=== PATIENT | female | born 2000 | race Two or more races ===

== ENCOUNTER 2025-06-29 11:04 | Outpatient (AMB) | payer OTHER, SELFPAY ==
--- NOTE | 2025-06-29 11:08 | A.OFFVIS_ITS ---
Intake Visit Reasons: 6m migraine HPI Comments Details: 25 years old right-handed woman with autism spectrum disorder, learning disability, and migriane. (She was initially seen in Aug when was here for an abnormal MRI of brain. This was done due to her psychological/cognitive issues. She was a product of normal , the first child of her mother, born a few weeks premature due to amniotic leak, with no overt issues at . She was noted to be a happy smiling child, seldom crying, and with problem speaking. Speech therapy started in young age. Physical milestones were ok. She barely could speak a little in first grade. Over the years, she struggled with acadamics and had to have repitition of everything. Even with that, and repeating dozens of times, she could not memorize. It was same with shcool subjects or activities like cooking. She had one or two consistent friends and enjoyed physical sports with them. She went through high school and then attended [employer] for [employer] program. Now she was struggling to pass the [facility] [employer] exam, which she has already taken twice. She used to pull her hair and chew her tongue. She was getting anxious about social situation and avoiding going into stores. Over the years, she was found to be a happy kid but not much interactive. She does not yell, even if her mom pushes her to do it. She is not bad with directions, can do dishes and vaccum, drives and has a license. She also suffered from headaches, about two times a week, each time lasting all day. Pain was all around the head, like a pressure. She was also freezing in the middle of conversation like a huge pause. IT was like her mind was not working.) She is presenting with migraine management needs. She reports experiencing migraines weekly, often lasting most of the day, with varying response to current medication. The headaches occur regularly, starting about a week ago with worsening severity. She frequently needs support to remember medications. Her record indicates autism spectrum disorder affecting her social and communication skills. She demonstrates significant avoidance of social interactions and difficulties with initiation. Additionally, she experiences consistent sleep disturbances characterized by challenges in both falling and staying asleep. She also experiences situational anxiety, especially in social contexts or unfamiliar environments. A learning disability further complicates her daily functionality, as noted in her struggles with time management and communication planning. Attempts have been made to provide support through therapy and a structured environment. Review of Systems Narrative - Neurologic: Reports migraines once a week - Psychiatric: Reports situational anxiety; Denies current symptoms of depression; Reports ongoing therapy - Sleep: Reports difficulty initiating and maintaining sleep - General: Reports autism spectrum disorder with noted difficulties in communication Physical Exam Neuro Other: Mental Status: Alert and oriented to person, place, and time. Normal attention. Normal spontaneous speech, fluency, and comprehension. Cranial Nerves: CN II: Visual taylor full to confrontation, visual acuity intact. CN III, IV, : Pupils equal, round, reactive to light and accommodation. Extraocular movements are normal. CN V: Facial sensation is normal. CN VII: Facial movements symmetrical. CN VIII: Hearing intact to bedside conversation is normal. CN IX, X: Palate elevates symmetrically. CN XI: Shoulder shrug and head turn symmetrical. CN XII: Tongue midline without atrophy or fasciculations. Coordination: Dachlf-pk-cofe and bwvl-jy-[id number] testing normal. No dysmetria. Gait and Station: No obvious gait abnormality. No ataxia or instability. Extrapyramidal: Full facial expressions and blinking. No rigidity. Movements are appropriate with no tremor or abnormality. Speech: Normal; no dysarthria or tremor. Assessment & Plan Assessment & Plan (1) Migraine without aura: Comment: MRI brain WO at [facility] in Jun 2024: One punctate WM left frontal lesion, non significant, otherwise ok Routine EEG at off in Aug 2024: WNL. Code(s): G43.009 - Migraine without aura, not intractable, without status migrainosus Category: Medical Qualifiers: Status migrainosus presence: without status migrainosus Intractability: not intractable Qualified Code(s): G43.009 - Migraine without aura, not intractable, without status migrainosus (2) Autism spectrum disorder: Code(s): F84.0 - Autistic disorder Category: Medical (3) Learning disabilities: Code(s): F81.9 - Developmental disorder of scholastic skills, unspecified Category: Social Hx Plan Impression: a: Migraine without aura b: Autism spectrum disorder c: Learning disabilities that impacts her ability to work in a profession and to remember to take meds on regular basis Rec: a: Reassurance b: Propranalol 10mg bid for migraine control and anxiety c: Sumatriptan 50mg one a day as needed. Medications: New propranolol 10 mg PO BID 120 tabs 0RF sumatriptan succinate 50 mg orally qd prn for headache PRN; do not exceed 4 doses per 24 hrs 10 tabs 5RF migraine headache Coding Level of Care Code Est Pt Level 5 (15436) Global (21769) Diagnoses Migraine without aura and without status migrainosus, not intractable G43.009 Status migrainosus presence: without status migrainosus Intractability: not intractable Autism spectrum disorder F84.0 Learning disabilities F81.9 Time Spent (min) 60 Comment A lot of time was spent discussing her medical and social issues and providing counseling.
--- OUTSIDE RECORDS SUMMARY | 2025-06-29 13:14 | XMS_ITS | Clinical Summary ---
Author Organization [facility] ity Address [address] [place] [address] Care Team Providers Care Material Coordinator Name Role Phone Unavailable Primary Care Provider Unavailabl e Social History Tobacco Use Types Packs/Day Years Used Date Smoking Tobacco: Never Assessed Comments Unknown Sex and Gender Information Value Date Recorded Sex Assigned at Not on file Legal Sex Female 7:15 AM EST Gender Identity Not on file Sexual Orientation Not on file Plan of Treatment Health Maintenance Due Date Last Done Comments HPV Vaccines (1 - 3-dose series) 02/08/2015 DTaP,Tdap,and Td Vaccines (1 - Tdap) 02/08/2019 Hepatitis B Vaccines (1 of 3 - 19+ 3-dose series) 02/08/2019 Cervical Cancer Screening: P ap Smear 02/08/2021 Depression Screening 08/19/2024 COVID-19 Vaccine ( - 2023-2 5 season) 2025 Influenza Vaccine (#1) 2025 RSV Immunization Adult Patie nts (1 - 1-dose 75+ series) 02/08/2075 HIB Vaccines Aged Out No longer eligi ble based on patient's age to complete this topic Hepatitis A Vaccines Aged Out No long er eligible based on patient's age to complete this topic IPV Vaccines Aged Out No longer eligi ble based on patient's age to complete this topic MMR Vaccines Aged Out No longer eligi ble based on patient's age to complete this topic Meningococcal ACWY Vaccine Aged Out N o longer eligible based on patient's age to complete this topic Meningococcal B Vaccine Aged Out No l onger eligible based on patient's age to complete this topic Pneumococcal Vaccine: Pediat rics (0 to 5 Years) and At-Risk Patients (6 to 49 Years) Aged Out No longer eligible b ased on patient's age to complete this topic RSV Immunization Patients Un demetrius 20 months Aged Out No longer eligible b ased on patient's age to complete this topic Varicella Vaccines Aged Out No longer eligible based on patient's age to complete this topic
--- OUTSIDE RECORDS SUMMARY | 2025-06-29 13:15 | XMS_ITS | Data Portability ---
Author Organization [place] - [facility], [facility] Address [address] [place] [address] Assessment Encounter Date Assessment Date Assessment LastModified by Organization Details LastModified Time 05/25/2019 05/25/2019 Dmitri presented with persistent cough for almost 1 month, possibly with some improvement, but mom is addiment that she never improved and is only getting worse. Lungs clear on exam, but may have atypical pneumonia, so will treat with azithromycin. Mom aware that this will not help if she has had back to back viral URIs. Discussed supportive care for cough: vicks vapor rub to chest for nighttime cough, honey or tea with lemon and honey, tylenol/motrin as needed for fever or discomfort. [email or web address] Not available 05/25/2019 17:20:21 03/22/2021 03/22/2021 Dmitri is a 21 year old female presenting for routine WCC. No high risk issues Developmental academic issues- IEP was in place, following with disability services and [facility]. Encouraged mom to reach out to [facility] for further information and options for testing. At this point is not eligible to be seen with Developmental Pediatrics. Speech issues- seems to be stable and she is able to communicate well Weight has been ongoing issue with strong family hx of obesity. 11 lbs weight gain in the last year, remains obese. Discussed at length with patient and mom. Seems fairly motivated after recent Nutrition course and seeing weight increase today to make some behavioral changes. [email or web address] Not available 03/22/2021 14:02:45 09/11/2021 09/11/2021 Viral syndrome- Suspect covid. Had known exposure at work. Covid screen sent. Sxs care. Discussed worrisome sxs. F/u prn. [email or web address] Not available 09/11/2021 15:32:06 04/10/2022 04/10/2022 Dmitri is a 22 year old female presenting for [facility]. History of obesity, developmental academic issues. Working with [facility] and disability services. Doing well in school with accomodations. Mom continues to have concerns about her cognitive and intellectual processing. Reports she has difficulty processing things, studying on her own, unsure if related to processing information, organization, ability to advocate for herself. Reports that if lets her study on her own grades decline and mom jumps in again to quiz her. If driving somewhere new, takes Dmitri many many times to practice and learn before feeling comfortable. Mom not sure if she's ever had cognitive testing for her and is now interested in formal evaluation. Had discussed this with mom last year but mom reports [facility] directed her back to her PCP. Always smiling per mom, even in inappropriate situations, like if mom is angry. Thinks maybe it is a nervous smile, but mom incredibly nervous that it will get her in trouble if she is ever pulled over by a motorcycle police officer, gets in trouble at school, etc. Used to bite tongue, now resolved. Has never seen a therapist and is not interested in one today. Continued to encourage Dmitri and mom to find a therapist to help with coping, behavioral techniques, life skills. 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 Showed up around 5th grade and got bigger, but stable in size for the last 2 years. Has not seen dermatology, but mom sure that it is stable and unchanged in recent years. [email or web address] Not available 04/10/2022 20:39:08 Plan of Treatment Reminders Order Date Submit Date Provider Last Modified By Organization Details Last Modified Time Details Appointments None recorded. Lab urinalysis , dipstick 2021 022 [facility], [address] [place] [address], [place], [address], 16:01:02 culture, urine 2021 022 [email or web address] [facility] (Centralized Electronic Ordering - All Locations), Patient Can Go To The Location Of Their Choice, 3 11:30:28 urinalysis , complete 2021 [facility] (Centralized Electronic Ordering - All Locations), Patient Can Go To The Location Of Their Choice, 02:29:45 lipid panel, serum 2021 [facility] (Centralized Electronic Ordering - All Locations), Patient Can Go To The Location Of Their Choice, 16:40:30 ALT (alanine aminotrans ferase), serum or plasma 2021 [facility] (Centralized Electronic Ordering - All Locations), Patient Can Go To The Location Of Their Choice, 07:30:25 AST/SGOT (aspartate aminotrans ferase), serum or plasma 2021 [facility] (Centralized Electronic Ordering - All Locations), Patient Can Go To The Location Of Their Choice, 07:30:26 HbA1c (hemoglobi n A1c), blood 2021 [facility] (Centralized Electronic Ordering - All Locations), Patient Can Go To The Location Of Their Choice, 19:25:50 T4, free, serum 2021 [facility] (Centralized Electronic Ordering - All Locations), Patient Can Go To The Location Of Their Choice, 16:45:52 TSH, serum or plasma 2021 [facility] (Centralized Electronic Ordering - All Locations), Patient Can Go To The Location Of Their Choice, 16:45:53 CMP, serum or plasma 2021 [facility] (Centralized Electronic Ordering - All Locations), Patient Can Go To The Location Of Their Choice, 16:40:29 CBC w/ auto diff 2021 [facility] (Centralized Electronic Ordering - All Locations), Patient Can Go To The Location Of Their Choice, 17:50:47 ferritin, serum or plasma [address] [facility] [facility]), Patient Can Go To The Location Of Their Choice, 16:45:50 SARS CoV 2 RNA (COVID-19) , QL, report analyst-PCR, respirator y specimen - Test Code 81853 [id number] 2021 [facility]), Patient Can Go To The Location Of Their Choice, 15:57:54 lipid panel, serum - FASTING [address] [facility] - [facility]ations), Patient Can Go To The Location Of Their Choice, 05:00:36 TSH + free T4, serum [address] [facility]), Patient Can Go To The Location Of Their Choice, 05:00:36 glucose, fasting, QN, serum or plasma [address] [facility] - [facility]ations), Patient Can Go To The Location Of Their Choice, 05:00:36 glucose, QN [mass/volu me], serum or plasma - fasting [address] [facility] [facility] - [facility] Locations), Patient Can Go To The Location Of Their Choice, 05:00:36 ALT (alanine aminotrans ferase), serum or plasma [address] [facility] - [facility] Locations), Patient Can Go To The Location Of Their Choice, 05:00:36 HbA1c (hemoglobi n A1c), blood [address] [facility] - [facility] Locations), Patient Can Go To The Location Of Their Choice, [id number] 05:00:36 insulin, fasting, serum 2020 021 [facility] (Centralized Electronic Ordering - All Locations), Patient Can Go To The Location Of Their Choice, [id number] 2 05:00:36 AST/SGOT (aspartate aminotrans ferase), serum or plasma 2020 021 [facility] (Centralized Electronic Ordering - All Locations), Patient Can Go To The Location Of Their Choice, [id number] 17:39:41 Referral neuropsych iatrist referral - 22 year old female with developmen parish delay, mom looking to pursue further diagnostic testing for cognitive or processing disorder 2021 022 [facility], [address] [place] [address] [address], [place], [address], 3 11:00:25 Procedures None recorded. Surgeries None recorded. Imaging None recorded. Medication Orders Retin-A 0.05 % topical cream 2020 021 [id number], [address], [place], [id number], 2 07:08:18 azithromyc in 250 mg tablet 2018 [id number], [address], [place], [id number], 0 08:32:47 Patient TargetsNo targets recorded. Patient Instructions Encounter Date Encounter Id Patient Instructions Last Modified By Organization Details Last Modified Time 03/11/2020 [id number] patient health questionnaire depression assessment* [email or web address] Not available 03/11/2020 08:55:18 immunization: what you need to know [place] Not available 03/11/2020 08:55:18 5210 program - 5 fruits & veggies [email or web address] Not available 03/11/2020 08:55:18 5210 program - 1 hour of exercise [place] Not available 03/11/2020 08:55:18 03/22/2021 [id number] program - 5 fruits & veggies Not available 03/22/2021 10:24:04 5210 program - 1 hour of exercise Not available 03/22/2021 10:24:04 patient health questionnaire depression assessment* BLANCA Not available 03/22/2021 10:42:46 immunization: what you need to know Not available 03/22/2021 10:24:04 04/10/2022 [id number] 0416 program - 5 fruits & veggies [email or web address] Not available 04/10/2022 15:18:37 5210 program - 1 hour of exercise [email or web address] Not available 04/10/2022 15:18:37 patient health questionnaire depression assessment* BLANCA Not available 04/10/2022 15:53:48 immunization: what you need to know [email or web address] Not available 04/10/2022 15:18:38 We have discusse d that it is now time for the patient to work on selecting a new adult medicine provider. [email or web address] Not available 04/09/2022 10:48:41 Reason for Referral Neuropsychiatrist Referral f or Developmental academic disorder 22 year old female with developmental delay, mom looking to pursue further diagnostic testing for cognitive or processing disorder Referring Physician: Walter Sheppard, Pediatric Medicine, Encounter Date: 04/10/2022 Results Created Date Observation Date Name Description Value Unit Range Abnormal Flag Note LastModifiedBy Organization Detail LastModifiedTime 02/28/20 20 03/11/2020 patie nt healt h quest ionna lawanda depre ssion asses sment * PHQ-9 negati ve Not Available [facility] [address] [place] [address], [phone], 02/28/2020 10:50:45 04/30/20 19 04/30/2019 cultu re, throa t Result 24 HR negati ve Not Available [facility] [address] [place] [address], [phone], 04/30/2019 16:52:00 04/30/20 19 04/30/2019 cultu re, throa t Result 48 HR negati ve Not Available [facility] [address] [place], [address], 04/30/2019 16:52:00 04/30/20 19 04/30/2019 rapid strep group A, throa t Rapid Strep negati ve Not Available [facility] [address] [place], [address], 04/30/2019 16:52:00 03/22/20 21 03/22/2021 patie nt healt h quest ionna lawanda depre ssion asses sment * PHQ-9 negati ve Not Available [facility] [address] [place] [address], [phone], 03/20/2021 12:01:24 09/11/19 22 09/14/2021 COVID -19 (NOVE L CORON AVIRU S) PCR covid-19 PCR result (neg) NEGAT ALBERT 2019- novel Coron aviru s (2019 -nCoV ) not detec demetra by the qRT-P CR assay . If clini mark suspi cion for COVID -19 is high, ayana nue to maint ain preca ution s and consi demetrius repea t testi ng. Resul t repor demetra to the [facility]. This test has been autho rized by the FDA under an Emerg ency Use Autho rizat ion (EUA) for use by autho rized labor atori es. Test perfo rmed by Clini mark [facility] at the [facility] and Leslie shaw, [address] [place] [id number] . CLIA ID: [id number] , CAP: [id number] 96. Medic al Direc tor: Celia Gutierrez, PhD FAC (NOTE ) The CRSP SARS- CoV-2 Real- time Rever se Trans cript ase (RT)- PCR Diagn ostic Assay is a real- time RT-PC R test inten ded for the quali tativ e detec tion of nucle ic acid from the SARS- CoV-2 in nasop haryn geal and oroph aryng eal swabs colle cted from indiv idual s who may have contr acted the virus . Testi ng is limit ed to the Clini mark [facility] Seque ncing Platf orm at the [facility] which is certi fied under the Clini mark Labor atory Impro vemen t Amend ments of 1987 (CLIA ), 42 U.S.C . ?263a , to perfo rm high compl exity tests . = Posit albert resul ts are indic ative of activ e infec tion with SARS- CoV-2 but do not rule out bacte rial infec tion or co-in fecti on with other virus es. The agent detec demetra may not be the defin ite cause of disea se. In addit ion, nucle ic acid detec tion can persi st follo wing clear ance of activ e viral repli catio n. Labor atori es withi n the Unite d State s and its karlos doug s are requi red to repor t all posit albert resul ts to the appro priat e publi c healt h autho ritie s. = Negat albert resul ts do not precl ude SARS- CoV-2 infec tion and shoul d not be used as the sole basis for patie nt treat ment or other patie nt manag ement decis ions. Negat albert resul ts must be combi lupillo with clini mark obser vatio ns, patie nt histo ry, and epide miolo gical infor matio n. Not Available [facility] (Centralized Electronic Ordering - All Locations) Patient Can Go To The Location Of Their Choice, [id number] 09/14/2021 11:27:27 10/29/1910/28/2021 ALT ALT 20 U/L (0-33) Not Available [facility] (Centralized Electronic Ordering - All Locations) Patient Can Go To The Location Of Their Choice, 10/28/2021 17:39:40 10/29/19 22 10/28/2021 AST AST 20 U/L (0-32) Not Available [facility] (Centralized Electronic Ordering - All Locations) Patient Can Go To The Location Of Their Choice, [id number] 10/28/2021 17:39:41 10/29/1910/28/2021 GLUCO SE glucose 95 mg/dL (70-99 ) Not Available [facility] (Centralized Electronic Ordering - All Locations) Patient Can Go To The Location Of Their Choice, 10/28/2021 17:39:42 10/29/1910/28/2021 LIPID PANEL cholesterol, total 213 mg/dL (<200) high Not Available [facility] ([facility] Order[facility] - All Locations) Patient Can Go To The Location Of Their Choice, 10/28/2021 17:39:42 10/29/1910/28/2021 LIPID PANEL triglyceride 98 mg/dL (<150) Not Available [facility] ([facility] - All Locations) Patient Can Go To The Location Of Their Choice, 10/28/2021 17:39:42 10/29/1910/28/2021 LIPID PANEL HDL chol 48 mg/dL (>39) Not Available [facility] (Centralized Electronic Ordering - All Locations) Patient Can Go To The Location Of Their Choice, 10/28/2021 17:39:42 10/29/1910/28/2021 LIPID PANEL LDL cholesterol, calculated 145 mg/dL (0-130 ) high Not Available [facility] (Centralized Electronic Ordering - All Locations) Patient Can Go To The Location Of Their Choice, 10/28/2021 17:39:42 10/29/1910/28/2021 LIPID PANEL non HDL cholesterol (calc) 165 mg/dL (<160) high Not Available [facility] ([facility] Ordering - All Locations) Patient Can Go To The Location Of Their Choice, 10/28/2021 17:39:42 10/29/1910/28/2021 FREE T4 free T4 1.07 NG/dL (0.70- 1.80) Not Available [facility] (Centralized Electronic Ordering - All Locations) Patient Can Go To The Location Of Their Choice, 10/28/2021 17:40:10 10/29/1910/28/2021 TSH TSH 1.68 uIU/m L (0.4-4 .2) Not Available [facility] (Centralized Electronic Ordering - All Locations) Patient Can Go To The Location Of Their Choice, 10/28/2021 17:40:11 10/29/1910/28/2021 HEMOG LOBIN A1C hemoglobin A1C 5.6 % (4.0-5 .6) MONIT ORING : In known diabe tic patie nts, hemog lobin A1c targe ts shoul d be discu ssed with healt h care provi demetrius. DIAGN OSTIC USE: The Ameri can Diabe janusz Assoc iatio n (ADA) and the World Healt h Organ izati on (WHO) recom mend the use of HbA1c to diagn ose diabe janusz using a thres hold of 6.5%. Patie nts who have an HbA1c betwe en 5.7% and 6.4% are consi dered at incre ased risk for devel oping diabe janusz in the futur e. CAUTI ON: False ly low HbA1c resul ts may be obser nestor in patie nts with hemol ytic anemi a, homoz ygous forms of abnor mal hemog lobin (e.g. SS, CC, SC), pregn aly, recen t blood loss or hemog lobin F great er than 7%. Fruct osami ne may be used as an alter jo ann test in these cases . REFER ENCE: ADA: Stand ards of Medic al Care in Diabe janusz 2019, The Journ al of Clini mark and Appli ed Res[facility] and Educa tion Volum e 43, Suppl ement 1 Not Available [facility] (Centralized Electronic Ordering - All Locations) Patient Can Go To The Location Of Their Choice, [id number] 10/28/2021 18:11:28 04/10/2004/11/2022 LAB ONLY URINA LYSIS appear/color LIGHT YELLO W CLEAR Not Available [facility] (Centralized Electronic Ordering - All Locations) Patient Can Go To The Location Of Their Choice, [id number] 04/11/2022 02:29:45 04/10/2004/11/2022 LAB ONLY URINA LYSIS sp. gravity 1.024 (1.002 -1.030 ) Not Available [facility] (Centralized Electronic Ordering - All Locations) Patient Can Go To The Location Of Their Choice, [id number] 04/11/2022 02:29:45 04/10/2004/11/2022 LAB ONLY URINA LYSIS urine pH 6.0 (5.0-8 .0) Not Available [facility] (Centralized Electronic Ordering - All Locations) Patient Can Go To The Location Of Their Choice, 04/11/2022 02:29:45 04/10/2004/11/2022 LAB ONLY URINA LYSIS urine albumin NEGATI VE (neg) Not Available [facility] (Centralized Electronic Ordering - All Locations) Patient Can Go To The Location Of Their Choice, 04/11/2022 02:29:45 04/10/2004/11/2022 LAB ONLY URINA LYSIS urine glucose NEGATI VE (neg) Not Available [facility] (Centralized Electronic Ordering - All Locations) Patient Can Go To The Location Of Their Choice, 04/11/2022 02:29:45 04/10/2004/11/2022 LAB ONLY URINA LYSIS urine ketones NEGATI VE (neg) Not Available [facility] (Centralized Electronic Ordering - All Locations) Patient Can Go To The Location Of Their Choice, 04/11/2022 02:29:45 04/10/2004/11/2022 LAB ONLY URINA LYSIS urine bilirubin NEGATI VE (neg) Not Available [facility] (Centralized Electronic Ordering - All Locations) Patient Can Go To The Location Of Their Choice, 04/11/2022 02:29:45 04/10/2004/11/2022 LAB ONLY URINA LYSIS urine hemoglobin NEGATI VE (neg) Not Available [facility] (Centralized Electronic Ordering - All Locations) Patient Can Go To The Location Of Their Choice, 04/11/2022 02:29:45 04/10/2004/11/2022 LAB ONLY URINA LYSIS urine nitrite NEGATI VE (neg) Not Available [facility] (Centralized Electronic Ordering - All Locations) Patient Can Go To The Location Of Their Choice, 04/11/2022 02:29:45 04/10/2004/11/2022 LAB ONLY URINA LYSIS urine leukocyte NEGATI VE (neg) Not Available [facility] (Centralized Electronic Ordering - All Locations) Patient Can Go To The Location Of Their Choice, 04/11/2022 02:29:45 04/10/2004/11/2022 LAB ONLY URINA LYSIS urobilinogen NORMAL mg/dL (norm) Not Available [facility] - [facility] Locations) Patient Can Go To The Location Of Their Choice, [facility] 04/11/2022 02:29:45 04/10/2004/11/2022 LAB ONLY URINA LYSIS urine WBCs 2 /hpf (0-5) Not Available [facility] ([facility]ized Electronic Ordering - All Locations) Patient Can Go To The Location Of Their Choice, [facility] 04/11/2022 02:29:45 04/10/2004/11/2022 LAB ONLY URINA LYSIS urine RBCs 1 /hpf (0-3) Not Available [facility] (Centralized Electronic Ordering - All Locations) Patient Can Go To The Location Of Their Choice, [id number] 04/11/2022 02:29:45 04/10/2004/11/2022 LAB ONLY URINA LYSIS bacteria SLIGHT hpf (neg) abnormal Not Available [facility] (Centralized Electronic Ordering - All Locations) Patient Can Go To The Location Of Their Choice, [facility] 04/11/2022 02:29:45 04/10/2004/11/2022 LAB ONLY URINA LYSIS mucus SLIGHT /lpf Not Available [facility] (Centralized Electronic Ordering - All Locations) Patient Can Go To The Location Of Their Choice, [facility] 04/11/2022 02:29:45 04/10/2004/11/2022 LAB ONLY URINA LYSIS squamous epith 9 /hpf (0-8) high Not Available [facility] Order[facility] - All Locations) Patient Can Go To The Location Of Their Choice, [facility] 04/11/2022 02:29:45 04/10/2004/10/2022 urina lysis , dipst ick Glucose Negati ve Not Available [facility] [address] [place] [address], [address], 04/10/2022 14:58:10 04/10/20 22 04/10/2022 urina lysis , dipst ick Bilirubin Negati ve Not Available [facility] [address] [place] [address], [phone], 04/10/2022 14:58:10 04/10/20 22 04/10/2022 urina lysis , dipst ick Ketone Modera te Not Available [facility] [address] [place] [address], [address], 04/10/2022 14:58:10 04/10/20 22 04/10/2022 urina lysis , dipst ick Specific Blossom 1.015 Not Available [facility] [address] [place] [address], [address], 04/10/2022 14:58:10 04/10/20 22 04/10/2022 urina lysis , dipst ick Blood Negati ve Not Available [address], [phone], 04/10/2022 14:58:10 04/10/20 22 04/10/2022 urina lysis , dipst ick pH 5.0 Not Available [address], [address], 04/10/2022 14:58:10 04/10/20 22 04/10/2022 urina lysis , dipst ick Protein Negati ve Not Available [address], [address], 04/10/2022 14:58:10 04/10/20 22 04/10/2022 urina lysis , dipst ick Urobilinogen .2 Not Available [address], [address], 04/10/2022 14:58:10 04/10/20 22 04/10/2022 urina lysis , dipst ick Nitrite negati ve Not Available [address], [address], 04/10/2022 14:58:10 04/10/20 22 04/10/2022 urina lysis , dipst ick Leukocytes Negati ve Not Available [address], [address], 04/10/2022 14:58:10 04/10/2004/10/2022 patie nt healt h quest davna lawanda lopes * PHQ-9 positi ve Not Available [facility] [address] [place], [address], 04/09/2022 10:48:51 06/07/2006/07/2022 ALT results Dupli bari order cance lled via inter face Not Available [facility] (Centralized Electronic Ordering - All Locations) Patient Can Go To The Location Of Their Choice, 06/07/2022 07:30:25 06/07/2006/07/2022 AST results Dupli bari order cance lled via inter face Not Available [facility] (Centralized Electronic Ordering - All Locations) Patient Can Go To The Location Of Their Choice, 06/07/2022 07:30:26 06/07/2006/07/2022 COMPR EHENS ALBERT METAB OLIC PANL glucose 96 mg/dL (70-99 ) Not Available [facility] (Centralized Electronic Ordering - All Locations) Patient Can Go To The Location Of Their Choice, 06/07/2022 16:40:29 06/07/2006/07/2022 COMPR EHENS ALBERT METAB OLIC PANL BUN 9 mg/dL (6-20) Not Available [facility] ([facility]ized Electronic Ordering - All Locations) Patient Can Go To The Location Of Their Choice, 06/07/2022 16:40:29 06/07/2006/07/2022 COMPR EHENS ALBERT METAB OLIC PANL creatinine 1.0 mg/dL (0.5-1 .0) Not Available [facility] ([facility]ized Electronic Ordering - All Locations) Patient Can Go To The Location Of Their Choice, 06/07/2022 16:40:29 06/07/2006/07/2022 COMPR EHENS ALBERT METAB OLIC PANL sodium 140 mmol/ L (133-1 45) Not Available [facility] (Centralized Electronic Ordering - All Locations) Patient Can Go To The Location Of Their Choice, 06/07/2022 16:40:29 06/07/2006/07/2022 COMPR EHENS ALBERT METAB OLIC PANL potassium 4.7 mmol/ L (3.6-5 .2) Not Available [facility] (Centralized Electronic Ordering - All Locations) Patient Can Go To The Location Of Their Choice, 06/07/2022 16:40:29 06/07/2006/07/2022 COMPR EHENS ALBERT METAB OLIC PANL chloride 101 mmol/ L (98-10 7) Not Available [facility] ([facility]ized Electronic Ordering - All Locations) Patient Can Go To The Location Of Their Choice, 06/07/2022 16:40:29 06/07/2006/07/2022 COMPR EHENS ALBERT METAB OLIC PANL bicarbonate 27 mmol/ L (22-29 ) Not Available [facility] ([facility]ized Electronic Ordering - All Locations) Patient Can Go To The Location Of Their Choice, 06/07/2022 16:40:29 06/07/2006/07/2022 COMPR EHENS ALBERT METAB OLIC PANL anion gap 12 (4-17) Not Available [facility] ([facility]ized Electronic Ordering - All Locations) Patient Can Go To The Location Of Their Choice, 06/07/2022 16:40:29 06/07/2006/07/2022 COMPR EHENS ALBERT METAB OLIC PANL albumin 4.9 gm/dL (3.4-4 .8) high Not Available [facility] (Centralized Electronic Ordering - All Locations) Patient Can Go To The Location Of Their Choice, 06/07/2022 16:40:29 06/07/2006/07/2022 COMPR EHENS ALBERT METAB OLIC PANL calcium 9.7 mg/dL (8.6-1 0.5) Not Available [facility] (Centralized Electronic Ordering - All Locations) Patient Can Go To The Location Of Their Choice, 06/07/2022 16:40:29 06/07/2006/07/2022 COMPR EHENS ALBERT METAB OLIC PANL bilirubin,to [place] 0.4 mg/dL (0-1.2 ) Not Available [facility] (Centralized Electronic Ordering - All Locations) Patient Can Go To The Location Of Their Choice, 06/07/2022 16:40:29 06/07/20 22 06/07/2022 COMPR EHENS ALBERT METAB OLIC PANL total protein 7.8 gm/dL (6.2-8 .2) Not Available [facility] (Centralized Electronic Ordering - All Locations) Patient Can Go To The Location Of Their Choice, 06/07/2022 16:40:29 06/07/2006/07/2022 COMPR EHENS ALBERT METAB OLIC PANL Ag ratio 1.7 Not Available [facility] (Centralized Electronic Ordering - All Locations) Patient Can Go To The Location Of Their Choice, 06/07/2022 16:40:29 06/07/2006/07/2022 COMPR EHENS ALBERT METAB OLIC PANL AST 15 U/L (0-32) Not Available [facility] (Centralized Electronic Ordering - All Locations) Patient Can Go To The Location Of Their Choice, 06/07/2022 16:40:29 06/07/2006/07/2022 COMPR EHENS ALBERT METAB OLIC PANL alk phos 88 U/L (35-10 4) Not Available [facility] (Centralized Electronic Ordering - All Locations) Patient Can Go To The Location Of Their Choice, 06/07/2022 16:40:29 06/07/2006/07/2022 COMPR EHENS ALBERT METAB OLIC PANL ALT 12 U/L (0-33) Not Available [facility] (Centralized Electronic Ordering - All Locations) Patient Can Go To The Location Of Their Choice, 06/07/2022 16:40:29 06/07/20 22 06/07/2022 COMPR EHENS ALBERT METAB OLIC PANL estimated GFR creatinine 85 mL/mi n/1.7 3_M2 Creat inine based estim ated glome rular filtr ation (eGFR ) in adult s is calcu lated using the Natio nal Kidne y Found ation recom charleen d 2020 CKD-E PI equat ion. Estim ates GFR from serum creat inine , age and sex. Not Available [facility] (Centralized Electronic Ordering - All Locations) Patient Can Go To The Location Of Their Choice, 06/07/2022 16:40:29 06/07/2006/07/2022 LIPID PANEL cholesterol, total 223 mg/dL (<200) high Not Available [facility] ([facility] Ordering - All Locations) Patient Can Go To The Location Of Their Choice, 06/07/2022 16:40:30 06/07/2006/07/2022 LIPID PANEL triglyceride 102 mg/dL (<150) Not Available [facility] ([facility] Ordering - All Locations) Patient Can Go To The Location Of Their Choice, 06/07/2022 16:40:30 06/07/2006/07/2022 LIPID PANEL HDL chol 47 mg/dL (>39) Not Available [facility] (Centralized Electronic Ordering - All Locations) Patient Can Go To The Location Of Their Choice, 06/07/2022 16:40:30 06/07/2006/07/2022 LIPID PANEL LDL cholesterol, calculated 156 mg/dL (0-130 ) high Not Available [facility] (Centralized Electronic Ordering - All Locations) Patient Can Go To The Location Of Their Choice, 06/07/2022 16:40:30 06/07/2006/07/2022 LIPID PANEL non HDL cholesterol (calc) 176 mg/dL (<160) high Not Available [facility] (Centralized Electronic Ordering - All Locations) Patient Can Go To The Location Of Their Choice, 06/07/2022 16:40:30 06/07/2006/07/2022 SOPHIE TIN ferritin 81 NG/mL (14-28 3) Not Available [facility] (Centralized Electronic Ordering - All Locations) Patient Can Go To The Location Of Their Choice, 06/07/2022 16:45:50 06/07/2006/07/2022 FREE T4 free T4 1.34 NG/dL (0.70- 1.80) Not Available [facility] (Centralized Electronic Ordering - All Locations) Patient Can Go To The Location Of Their Choice, 06/07/2022 16:45:52 06/07/2006/07/2022 TSH TSH 1.27 uIU/m L (0.4-4 .2) Not Available [facility] (Centralized Electronic Ordering - All Locations) Patient Can Go To The Location Of Their Choice, 06/07/2022 16:45:53 06/07/2006/07/2022 COMPL ETE CBC WITH DIFF WBC 7.3 K/mm3 (4.0-1 1.0) Not Available [facility] (Centralized Electronic Ordering - All Locations) Patient Can Go To The Location Of Their Choice, 06/07/2022 17:50:47 06/07/2006/07/2022 COMPL ETE CBC WITH DIFF RBC 4.66 M/mm3 (4.20- 5.40) Not Available [facility] (Centralized Electronic Ordering - All Locations) Patient Can Go To The Location Of Their Choice, 06/07/2022 17:50:47 06/07/2006/07/2022 COMPL ETE CBC WITH DIFF HGB 13.2 gm/dL (11.7- 15.5) Not Available [facility] (Centralized Electronic Ordering - All Locations) Patient Can Go To The Location Of Their Choice, 06/07/2022 17:50:47 06/07/2006/07/2022 COMPL ETE CBC WITH DIFF HCT 41.5 % (35.7- 45.8) Not Available [facility] (Centralized Electronic Ordering - All Locations) Patient Can Go To The Location Of Their Choice, 06/07/2022 17:50:47 06/07/2006/07/2022 COMPL ETE CBC WITH DIFF MCV 89.1 fL (80.0- 100.0) Not Available [facility] (Centralized Electronic Ordering - All Locations) Patient Can Go To The Location Of Their Choice, 06/07/2022 17:50:47 06/07/2006/07/2022 COMPL ETE CBC WITH DIFF MCH 28.3 pg (27.0- 34.0) Not Available [facility] (Centralized Electronic Ordering - All Locations) Patient Can Go To The Location Of Their Choice, 06/07/2022 17:50:47 06/07/2006/07/2022 COMPL ETE CBC WITH DIFF MCHC 31.8 g/dL (33.0- 37.0) low Not Available [facility] (Centralized Electronic Ordering - All Locations) Patient Can Go To The Location Of Their Choice, 06/07/2022 17:50:47 06/07/2006/07/2022 COMPL ETE CBC WITH DIFF plt 332 K/mm3 (150-4 60) Not Available [facility] (Centralized Electronic Ordering - All Locations) Patient Can Go To The Location Of Their Choice, 06/07/2022 17:50:47 06/07/2006/07/2022 COMPL ETE CBC WITH DIFF RDW-SD 45.8 fL (<47.0 ) Not Available [facility] (Centralized Electronic Ordering - All Locations) Patient Can Go To The Location Of Their Choice, 06/07/2022 17:50:47 06/07/2006/07/2022 COMPL ETE CBC WITH DIFF MPV 10.8 fL (9.4-1 2.4) Not Available [facility] (Centralized Electronic Ordering - All Locations) Patient Can Go To The Location Of Their Choice, 06/07/2022 17:50:47 06/07/2006/07/2022 COMPL ETE CBC WITH DIFF automated NRBC 0.0 #/100 _WBC' s Not Available [facility] (Centralized Electronic Ordering - All Locations) Patient Can Go To The Location Of Their Choice, 06/07/2022 17:50:47 06/07/2006/07/2022 COMPL ETE CBC WITH DIFF abs. NRBC 0.0 K/mm3 Not Available [facility] (Centralized Electronic Ordering - All Locations) Patient Can Go To The Location Of Their Choice, 06/07/2022 17:50:47 06/07/2006/07/2022 COMPL ETE CBC WITH DIFF neut # 4.6 K/mm3 (1.3-7 .0) Not Available [facility] (Centralized Electronic Ordering - All Locations) Patient Can Go To The Location Of Their Choice, 06/07/2022 17:50:47 06/07/2006/07/2022 COMPL ETE CBC WITH DIFF lymph # 2.1 K/mm3 (0.8-3 .1) Not Available [facility] (Centralized Electronic Ordering - All Locations) Patient Can Go To The Location Of Their Choice, 06/07/2022 17:50:47 06/07/2006/07/2022 COMPL ETE CBC WITH DIFF mono# 0.4 K/mm3 (0.4-0 .9) Not Available [facility] (Centralized Electronic Ordering - All Locations) Patient Can Go To The Location Of Their Choice, 06/07/2022 17:50:47 06/07/2006/07/2022 COMPL ETE CBC WITH DIFF eo # 0.0 K/mm3 (0.0-0 .4) Not Available [facility] (Centralized Electronic Ordering - All Locations) Patient Can Go To The Location Of Their Choice, 06/07/2022 17:50:47 06/07/2006/07/2022 COMPL ETE CBC WITH DIFF baso # 0.0 K/mm3 (0.0-0 .1) Not Available [facility] (Centralized Electronic Ordering - All Locations) Patient Can Go To The Location Of Their Choice, 06/07/2022 17:50:47 06/07/2006/07/2022 COMPL ETE CBC WITH DIFF abs. imm gran 0.0 K/mm3 Not Available [facility] ([facility] Ordering - All Locations) Patient Can Go To The Location Of Their Choice, 06/07/2022 17:50:47 06/07/2006/07/2022 COMPL ETE CBC WITH DIFF neut 63.8 % (44-76 ) Not Available [facility] (Centralized Electronic Ordering - All Locations) Patient Can Go To The Location Of Their Choice, 06/07/2022 17:50:47 06/07/2006/07/2022 COMPL ETE CBC WITH DIFF lymph 29.0 % (15-43 ) Not Available [facility] (Centralized Electronic Ordering - All Locations) Patient Can Go To The Location Of Their Choice, 06/07/2022 17:50:47 06/07/2006/07/2022 COMPL ETE CBC WITH DIFF monocyte 5.6 % (4.5-1 0.5) Not Available [facility] (Centralized Electronic Ordering - All Locations) Patient Can Go To The Location Of Their Choice, 06/07/2022 17:50:47 06/07/2006/07/2022 COMPL ETE CBC WITH DIFF eo 0.4 % (0-6) Not Available [facility] (Centralized Electronic Ordering - All Locations) Patient Can Go To The Location Of Their Choice, 06/07/2022 17:50:47 06/07/2006/07/2022 COMPL ETE CBC WITH DIFF baso 0.6 % (0-2) Not Available [facility] (Centralized Electronic Ordering - All Locations) Patient Can Go To The Location Of Their Choice, [id number] 06/07/2022 17:50:47 06/07/2006/07/2022 COMPL ETE CBC WITH DIFF imm gran 0.6 % Not Available [facility] (Centralized Electronic Ordering - All Locations) Patient Can Go To The Location Of Their Choice, 06/07/2022 17:50:47 06/07/2006/07/2022 HEMOG LOBIN A1C hemoglobin A1C 5.4 % (4.0-5 .6) MONIT ORING : In known diabe tic patie nts, hemog lobin A1c targe ts shoul d be discu ssed with healt h care provi demetrius. DIAGN OSTIC USE: The Ameri can [place] Assoc iatio n (ADA) and the World [facility] iz[facility] on (WHO) recom mend the use of HbA1c to diagn ose diabe janusz using a thres hold of 6.5%. Patie nts who have an HbA1c betwe en 5.7% and 6.4% are consi dered at incre ased risk for devel oping diabe janusz in the futur e. CAUTI ON: False ly low HbA1c resul ts may be obser nestor in patie nts with hemol ytic anemi a, homoz ygous forms of abnor mal hemog lobin (e.g. SS, CC, SC), pregn aly, recen t blood loss or hemog lobin F great er than 7%. Fruct osami ne may be used as an alter jo ann test in these cases . REFER ENCE: ADA: Stand ards of Medic al Care in [place] 2019, The Journ al of Clini mark and Appli ed Resea [facility] and Educa tion Volum e 43, Suppl ement 1 Not Available [facility] (Centralized Electronic Ordering - All Locations) Patient Can Go To The Location Of Their Choice, [id number] 06/07/2022 19:25:50 Result Notes None recorded. Problems Name Problem SNOMED Code Status Onset Date Resolution Date Notes Provider Name and Address Organization Details Recorded Time Chest pain 13977520 Completed 10/05/2013 [facility] 4 08:51:14 Acne 32624728 Active topical tretinoi n Not Available [facility] 0 11:11:44 Insomnia 166762981 Completed 01/29/2017 melatoni n rarely uses anymore [facility] 7 08:54:27 Acute pharyngi tis 281668633 Completed 03/08/2015 [facility] 5 07:15:52 Viral syndrome 850246773 Completed 03/09/2014 [facility] 4 06:56:54 Obesity 164955697 Active Not Available [facility] 0 11:11:44 Clavicle injury 032991838 Completed 03/13/2016 [facility] 6 09:02:36 Pain in throat 952160991 Completed 09/24/2012 Not Available [facility] 3 03:01:52 Pneumoni a 878894475 Completed 03/08/2015 [facility] 5 07:15:48 Abnormal weight gain 506158435 Completed 02/12/2019 disc at length [facility] 9 14:50:51 Anemia 657553823 Completed 03/08/2015 [facility] 7 08:54:35 Allergic rhinitis 89327373 Completed 09/24/2012 Not Available [facility] 3 03:01:52 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 Will need services for her in the future and also will need vocation al training as well? need disabili ty per momVerba l and non verbal communic ation disorder [facility]ISC FSIQ 71 Not Available [facility] 0 11:11:44 Streptoc occal sore throat 84134450 Completed 09/24/2012 Not Available [facility] 3 03:01:52 Sprains and strains of joints and adjacent muscles Completed 09/24/2012 Not Available [facility] 3 03:01:52 Sprain of ankle 40422433 Completed 09/24/2012 Not Available [facility] 3 03:01:52 Acute upper respirat ory infectio n 87460073 Completed 200609/24/2012 Not Available [facility] 3 03:01:52 Constipa tion 34301213 Completed 200609/24/2012 Not Available [facility] 3 03:01:52 Acute pharyngi tis 803367506 Completed 200609/24/2012 [facility] 5 07:15:52 Viral disease 92018769 Completed 200709/24/2012 Not Available [facility] 3 03:01:52 Acute conjunct ivitis 23472212 Completed 200809/24/2012 Not Available [facility] 3 03:01:52 Abnormal weight gain 658198188 Completed 200809/08/2009 [facility] 9 14:50:51 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 Medical Equipment None Reported. Allergies No known drug allergies Medications Name Sig Start Date Stop Date Status Note LastModified by Organization Details LastModified Time Retin-A 0.05 % topical cream APPLY A SMALL AMOUNT TOPICALL Y TO DRY FACE AT BEDTIME active Not Available Not Available No t Available azithromy huey 250 mg tablet take 2 tablets by mouth today then take 1 tablet DAILY FOR 4 DAYS 03/11 completed Not Available Not Available Not Available penicilli n V potassium 500 mg tablet Take 1 tablet twice a day by oral route for 10 days. 08/01 completed Not Available Not Available Not Available amoxicill in 400 mg/5 mL oral suspensio n Take 12.5 mL every day by oral route for 10 days. 06/09 completed 44 POUND ONCE DAILY STREP PROTOCOL (50 mg/kg/Da y) Not Available Not Available Not Available Amoxil 250 mg chewable tablet Chew 2 tablets twice a day by oral route for 10 days. 07/01 completed Not Available Not Available Not Available ibuprofen 600 mg tablet take 1 tablet by mouth three times a day if needed for ANALGESI A 01/29 completed Not Available Not Available Not Available ferrous sulfate 325 mg (65 mg iron) tablet,de layed release take 1 tablet by mouth once daily active Not Available Not Available No t Available melatonin 1 mg tablet Take 1 tablet as needed by oral route at bedtime for 30 days. 03/08 completed Not Available Not Available Not Available Mvc-Fluor yana 1 mg chewable tablet chew and swallow 1 tablet by mouth daily active Not Available Not Available No t Available Multi-Vit sanchez With Fluoride 1 mg chewable tablet chew 1 tablet by mouth once daily 2012 active Not Available Not Available Not Avai lable melatonin 1 mg sublingua l tablet 1-2 tablets 1-2 hours prior to sleep PRN 2013 active Not Available Not Available Not Avai lable Afluria 6832-0360 (PF) 45 mcg(15 mcg x 3)/0.5 mL intramusc ular syringe inject 0.5 millilit er intramus cularly 02/21 completed Not Available Not Available Not Available Fluzone Quad 2017-(P F) 60 mcg(15 mcgx4)/0. 5 mL intramusc ular syringe inject 0.5 millilit er intramus cularly 04/30 completed Not Available Not Available Not Available Fluarix Quad (PF) 60 mcg (15 mcg x 4)/0.5 mL IM syringe inject 0.5 millilit ers intramus cularly 04/30 completed Not Available Not Available Not Available Vitals Date Recorded Oxygen saturation Oxygen saturation in Arterial blood by Pulse oximetry Provider Name and Address Organization Details Last Updated DateTime 09/11/2021 98 % 98 % Esther Doyle, DO [address] [place] [address], [place], [address], [facility] 09/11/2021 15:31:31 Date Recorded Body height Body mass index (BMI) Body mass index (BMI) [Percentile] Per age and sex Body weight Systolic And Diastolic Provider Name and Address Organization Details Last Updated DateTime 03/11/2020 158.11 cm 33.3 kg/m2 96 % 49033.5 6 g 118/70 mm[Hg] Walter Miller R.N. [facility] 08:42:31 Date Recorded Body height Body mass index (BMI) Body weight Systolic And Diastolic Provider Name and Address Organization Details Last Updated DateTime 03/22/2021 158.11 cm 35.3 kg/m2 50845.36 g 114/68 mm[Hg] Sia Parikh [facility] 03/22/2021 09:03:15 Date Recorded Body height Body mass index (BMI) Body weight Systolic And Diastolic Provider Name and Address Organization Details Last Updated DateTime 04/10/2022 156.85 cm 36.7 kg/m2 03321.16 g 112/80 mm[Hg] Bhargavi Davison L.P.N. [facility] 04/10/2022 14:17:45 Date Recorded Body height Provider Name an d Address Organization Details Last Updated DateTime 05/25/2019 156.21 cm Ania Warren M.A. [facility] 05/25/2019 16:56:13 Social History Question Answer Notes LastModified by Organizat ion Details LastModified Time Tobacco Smoking Status Never Smoker Shayla awad, [facility] 10/05/2013 14:48:16 Have There Been Any Changes To Your Family Or Social Situation? No [email or web address] Information not available 03/11/2020 Hard Of Hearing Or Deaf In One Or Both Ears? No Information not available 03/12/2016 Legally Blind In One Or Both Eyes? No Information not available 03/12/2016 Parent's Marital Status Unmarried [email or web address] Information not available 06/23/2011 Home Situation Mother Information not available 06/23/2011 Siblings Names And Birthdates Tia (F) 08/18/2001 [email or web address] Information not available 06/23/2011 Year In School College Sophomore Year At [employer] Fall 2019 [email or web address] Information not available 02/12/2019 Parent's Name Deepti Dan [email or web address] Information not available 06/23/2011 Parent's Name Be Information not available 06/23/2011 What Was The Date Of Your Most Recent Tobacco Screening? 02/12/2019 Information not available 03/12/2019 What Is The Name Of Your School? [employer] [email or web address] Information not available 06/23/2011 Do You Use Your Seat Belt Or Car Seat Routinely? Yes [email or web address] Information not available 06/23/2011 Are You Passively Exposed To Smoke? No Information not available 10/05/2013 How Much Tobacco Do You Smoke? No Information not available 03/12/2016 Year In School 3 Information not available 06/23/2011 Sex: Unknown Functional Status None recorded. Mental Status None recorded. Family History Relationship Description Onset Age of this Age Resolved Age Notes LastModified by Organization Details LastModified Time Mother Obese klisien Not available 09:12:27 Mother Asthma klisien Not available 09:12:27 Maternal Grandmother Diabetes mellitus klisien Not available 2014 09:12:27 Maternal Grandmother Obese klisien Not available 2014 09:12:27 Maternal Grandfather Heart disease klisien Not available 2014 09:12:27 Maternal Grandfather Obese klisien Not available 2014 09:12:27 Sister Obese klisien Not available 09:12:27 Notes:Updated 04/09 Medical History Condition Response DEVELOPMENTAL/ BEHAVIORAL PROBLEMS Y ENDOCRINE PROBLEMS/DIABETES Y Gynecological History Statement/Question Response Y Y Date of LMP 02/27/2021 Age at onset of periods 12 yrs Obstetrics History GPAL:G 0 P 0 0 0 0 Immunizations Vaccine Type Date Status Note Provider Nam e and Address Organization Details Recorded Time influenza, unspecified formulation 7 completed [facility] 03/11/2020 08:53:30 Influenza, split virus, trivalent, preservative 1 completed Not Available [facility] 09/05/2019 02:35:17 meningococcal MCV4P 2 completed Not Available [facility] 09/05/2019 02:33:28 Tdap 2 completed Not Available [facility] 09/05/2019 02:33:44 Influenza, split virus, trivalent, preservative 2 completed Not Available [facility] 09/05/2019 02:35:22 influenza, unspecified formulation 8 completed [facility] 03/11/2020 08:53:30 HPV, quadrivalent 3 completed Not Available [facility] 09/05/2019 02:34:03 HPV, quadrivalent 3 completed Not Available [facility] 09/05/2019 02:34:04 HPV, quadrivalent 3 completed Not Available [facility] 09/05/2019 02:34:08 Influenza, split virus, quadrivalent, PF 3 completed Not Available [facility] 09/05/2019 02:36:35 Influenza, split virus, quadrivalent, PF 4 completed Not Available [facility] 09/05/2019 02:35:59 Influenza, split virus, quadrivalent, PF 5 completed Not Available [facility] 09/05/2019 02:36:17 Hep B, adolescent or pediatric 0 completed [facility] 03/11/2020 08:53:30 Hep B, adolescent or pediatric 0 completed [facility] 03/11/2020 08:53:30 [facility] B, adolescent or pediatric [facility] 08:53:30 [facility]icella 9 [facility] 03/11/2020 08:53:30 meningococcal MCV4P 6 completed Not Available [facility] 09/05/2019 02:36:55 meningococcal B, OMV 6 completed Not Available [facility] 09/05/2019 02:36:53 meningococcal B, OMV 6 completed Not Available [facility] 09/05/2019 02:36:56 Influenza, split virus, quadrivalent, PF 6 completed Not Available [facility] 09/05/2019 02:36:58 Influenza, split virus, quadrivalent, preservative 9 [facility] 03/11/2020 08:53:30 Influenza, split virus, quadrivalent, PF 9 [facility] 03/11/2020 08:53:30 Influenza, split virus, quadrivalent, preservative 0 completed [facility] 05/03/2020 07:44:45 influenza, unspecified formulation 9 completed Tiffanie Walker [facility] 03/11/2020 08:53:30 Hep A, adult 0 completed Walter Miller R.N. [facility] 03/11/2020 09:16:54 Td (adult), 2 Lf tetanus toxoid, preservative free, adsorbed 1 completed Sia Parikh [facility] 03/22/2021 10:24:56 Influenza, split virus, trivalent, preservative 0 completed Not Available [facility] 09/05/2019 02:35:05 DTaP, unspecified formulation 0 [facility] 03/11/2020 08:53:30 DTaP, unspecified formulation 0 completed Tiffanie Denise null, [facility] 03/11/2020 08:53:30 DTaP, unspecified formulation 0 completed Tiffanie Denise null, [facility] 03/11/2020 08:53:31 DTaP, unspecified formulation 1 [facility]11[facility]2020 08:53:30 DTaP, unspecified formulation 5 completed Tiffanie Denise null, [facility] 03/11/2020 08:53:30 IPV 0 completed [facility] 03/11/2020 08:53:30 IPV 0 completed [facility]/11/2020 08:53:30 IPV 1 completed [facility] 03/11/2020 08:53:30 IPV 5 completed [facility] 03/11/2020 08:53:30 MMR 1 completed [facility] 03/11/2020 08:53:30 MMR 4 completed [facility] 03/11/2020 08:53:30 Hib, unspecified formulation 0 completed [facility] 03/11/2020 08:53:31 Hib, unspecified formulation 0 completed [facility] 03/11/2020 08:53:30 Hib, unspecified formulation 0 completed [facility] 03/11/2020 08:53:30 Hib, unspecified formulation 1 completed Tiffanie Denise null, [facility] 03/11/2020 08:53:31 varicella 1 completed [facility] 03/11/2020 08:53:30 pneumococcal conjugate PCV 7 0 completed [facility] 03/11/2020 08:53:30 pneumococcal conjugate PCV 7 0 completed Tiffanie Walker ritesh [facility] 03/11/2020 08:53:31 pneumococcal conjugate PCV 7 0 completed Tiffanie Walker ritesh [facility] 03/11/2020 08:53:30 pneumococcal conjugate PCV 7 1 completed Tiffanie Denise ritesh [facility] 03/11/2020 08:53:30 Past Encounters Encounter ID Performer Location Encounter Start Date Encounter Closed Date Diagnosis/Indication Diagnosis SNOMED-CT Code Diagnosis ICD10 Code Diagnosis IMO Codes Diagnosis Note [id number] Iftikhar Ortez MD [facility] [address] [place] [address] 06/04/2007 16:17:46 06/04/2007 16:47:40 [id number] Shai Bryant MD [facility] [address] [place] [id number] 07/14/2007 16:33:38 07/14/2007 17:04:43 [id number] Tiffanie Walker MD [facility] [address] [place] [address]339 4 08/13/2007 16:33:44 08/13/2007 16:55:37 [id number] Ankit Brown MD [facility] [address] [place] [address]071 4 11/10/2007 16:58:00 11/10/2007 17:33:41 [id number] Tiffanie Walker MD [facility] [address] [place] [address]585 4 12/11/2007 14:21:35 12/11/2007 14:59:18 [id number] Tiffanie Walker MD [facility] [address] [place] [address]891-172 4 02/27/2008 16:06:21 04/28/2009 01:23:50 [id number] Ankit Brown MD [facility] [address] [place] [address] 4 05/18/2008 16:32:10 04/28/2009 01:23:50 [id number] Tiffanie Walker MD [facility] [address] [place] [address] 4 10/21/2008 17:03:25 04/28/2009 01:23:50 [id number] Ankit Brown MD [facility] [address] [place] [address] 4 01/14/2009 13:45:11 01/14/2009 14:20:53 [id number] Tiffanie Walker MD [facility] [address] [place] [address] 4 01/19/2009 15:12:13 01/19/2009 16:23:06 [id number] Aspen Medina MD P[facility] [address] [address] 2 01/26/2009 09:45:08 01/26/2009 10:40:55 [id number] Tiffanie Walker MD [facility] [address] [place] [address] 4 05/12/2009 16:06:01 05/12/2009 16:49:09 [id number] Tiffanie Walker MD [facility] [address] [place] [address] 4 09/08/2009 14:31:25 09/08/2009 15:05:12 [id number] Tiffanie Walker MD [facility] [address] [place] [address] 4 02/17/2010 15:19:13 02/17/2010 15:42:31 [id number] Shai Bryant MD [facility] [address] [place] [address] 4 05/29/2010 15:38:03 05/29/2010 16:37:21 [id number] Shai Bryant MD [facility] [address] [place] [address] 4 06/21/2010 16:49:04 06/21/2010 17:17:19 [id number] Iftikhar Ortez MD [facility] [address] [place] [address] 4 10/16/2010 16:41:37 10/16/2010 16:59:39 [id number] Tiffanie Walker MD [facility] [address] [place] [address] 4 11/15/2010 09:12:21 11/15/2010 09:32:00 [id number] Tiffanie Walker MD [facility] [address] [place] [address] 4 07/22/2011 09:00:30 07/22/2011 09:21:42 [id number] Kyra Villavicencio MD [facility] [address] [place] [address] 4 08/19/2011 09:44:55 08/19/2011 10:01:57 [id number] Tiffanie Walker MD [facility] [address] [place] [address] 4 09/10/2011 14:59:28 09/10/2011 15:59:22 [id number] Iftikhar Ortez MD [facility] [address] [place] [address] 4 04/13/2012 08:48:35 04/13/2012 09:39:55 [id number] Tiffanie Walker MD [facility] [address] [place] [address] 4 09/24/2012 12:43:38 09/24/2012 13:47:37 [id number] Tiffanie Walker MD [facility] [address] [place] [address] 4 11/27/2012 15:09:07 11/27/2012 16:29:07 [id number] Tiffanie Walker MD [facility] [address] [place] [address] 4 07/08/2013 14:49:44 07/10/2013 11:49:01 Chest pain [id number] LIkely upper chest- muscle strain most likely from injury ? from picking up a back pack NSAIDS for now for a few days and if not better will consider recheck [id number] Tiffanie Walker MD [facility] [address] [place] [address] 4 10/05/2013 14:34:18 10/05/2013 17:07:46 Well child [id number] Obese female- 7th grade-was held back- many academic problems but good support systems- grades are good- but there is a lot of struggle- gets tutoring to help- will likely need career track in school and not academic track IEP and speech [facility] needs help for everything but does read Abnormal weight gain [id number] Nutrition referral Acne 67596513 Insomnia 063374129 sleep issues will refer for this but also discussed melatonin [id number] Iftikhar Ortez MD [facility] [employer] [address] [place] [address] [place] [address] 4 11/30/2013 14:53:44 11/30/2013 15:32:33 Acute pharyngitis 828493912 Viral syndrome 787798483 [id number] Tiffanie Walker MD [facility] [employer] [address] [place] [address] 03/09/2014 16:00:15 03/09/2014 17:24:11 Obesity 593636018 weight up 3 pounds - working on nutrition and exercise -family working on this together but there is a strong family history of obesity [place] academic disorder 1543689 Auditory processing problems Speech delay- gets help for this but she is very shy and anxious when speaking to others disc needs to practice working on this [id number] Tiffanie Walker MD [facility] [employer] [address] [place] [address] 4 03/08/2015 08:52:18 03/08/2015 10:30:04 Well child 101127934 Obese female- Fall 2014 [employer]- 9th grade-- many academic problems but good support systems- grades are good- but there is a lot of struggle- gets tutoring to help- will likely need career track in school and not academic track IEP and speech does not like to read- speech therapy [place] academic disorder 9733982 speech verbal and nonverbal comminucat ion Abnormal weight gain 655773241 Obesity 784727167 Increased body mass index 70986665 Patient given informatio n about patient portal and educationa l informatio n on nutrition, exercise and health risks 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 Also note to be excused from 06/07/15-1 09/03/2014 [id number] Tiffanie Walker MD [address] [address] 4 03/13/2016 08:14:33 03/13/2016 09:58:46 Well child 167447009 Z00.129 Overweight -female- Fall 2015 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 Acne 32596596 L70.9 uses tretinoin Abnormal weight gain 161 904880 R63.5 disc at length- full family with obesity [place] academic disorder 2757140 F81.9 speech verbal and nonverbal comminucat ion Obesity 090309063 E66.9 [id number] Tiffanie Walker MD [facility] [address] [place] [address] 4 02/21/2018 10:31:57 02/21/2018 11:55:38 Adult health examination 166129759 Z00.00 fall [employer]- IEP in place- B's and C's- interested in working with animals- Increased body mass index 20895869 E66.3 Patient given informatio n about patient portal and educationa l informatio n on nutrition, exercise and health risks Abnormal weight gain 161 974223 R63.5 disc at length- full family with obesity [place] academic disorder 6792716 F81.9 IEP for limited intell. ability ? veterinary parasitologist program [id number] Tiffanie Walker MD [facility] w [address] [place] [address] 4 02/12/2019 14:32:49 02/12/2019 17:25:55 Adult health examination 003130900 Z00.fall [facility] [employer] high risk issues however has :[place] academic issues- IEP was in place- [facility] fall will have some supports in placeSpeec h issues- seems to be stable and she is able to communicat e wellWeight is improved a bit since last seenMay need letter to [facility] for services - also she has her deliver driver s license Increased body mass index 23667240 E66.3 Patient given informatio n about patient portal and educationa l informatio n on nutrition, exercise and health risks [place] academic disorder 6250894 F81.9 IEP for limited intell. ability ? 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 Speech problem 478384197 R49.0 Persists despite less than effective help from high school [id number] Tiffanie Walker MD [address] [address] 4 04/30/2019 16:50:27 04/30/2019 17:31:31 Acute pharyngitis 972924696 J02.9 Viral syndrome 379385426 B34.9 Viral pharyngitis 072205 7 J02.8 Sore throat- RSS- TC pending likely viral illness sx tx-nasal saline, fluids, tea, honey, rest, humidifier f/u PRN poor po or poor urine output or if fever worsening, difficulty swallowing or inability to handle secretions Headache 64957355 R51 [id number] Rosalva James MD [address] [address] 4 05/25/2019 16:54:11 05/25/2019 17:21:14 Atypical pneumonia 087697952 J18.9 [id number] Tiffanie Walker MD [address] [address] 4 03/11/2020 08:28:37 03/11/2020 12:19:12 Adult health examination 628807625 Z00.00 Fall 2019 [facility] [place] high risk issuesDeve lopmental academic issues- IEP was in place- [facility] fall supports in placeSpeec h issues- seems to be stable and she is able to communicat e wellWeight has been ongoing issue with strong family hx of obesity- also she has her deliver driver s license Increased body mass index 92835404 E66.3 Patient given informatio n about patient portal and educationa l informatio n on nutrition, exercise and health risks Diet education 40097416 Z71.3 Disc healthy diet and risk of COVID Exercises education, guidance, and counseling 412054158 Z71.82 Speech problem 735886460 R49.0 doing well Non-neoplastic nevus 195 081381 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 ability ? veterinary parasitologist program eventually but will be in liberal arts initiallyF SIQ 71 testing and IEP is in chart [id number] WALTER SHEPPARD MD [address] [address] 03/22/2021 08:45:57 03/28/2021 11:04:50 Adult health examination 769213326 Z00.00 Diet education 85445261 Z71.3 Exercises education, guidance, and counseling 718190377 Z71.82 Increased body mass index 22990834 E66.3 Hyperlipid emia screening 586685853 Z13.220 Administra tion of diphtheria and tetanus vaccine 30583026 Z23 Acne 36388845 L70.9 [id number] Esther Brunooscar, DO [address] [address] 4 09/11/2021 14:45:27 09/11/2021 16:45:44 Suspected COVID-19 607003553 Z20.822 Viral syndrome 890919580 B34.9 [id number] WALTER SHEPPARD MD [address] [address] 4 04/10/2022 14:05:48 04/11/2022 07:51:41 Active or passive immunization 687951126 Z23 Adult heal th examination 524541393 Z00.00 Diet education 39616272 Z71.3 Exercises education, guidance, and counseling 580691939 Z71.82 Increased body mass index 01293058 E66.3 Hyperlipid emia screening 160757536 Z13.220 Increased frequency of urination 114668173 R35.0 Fatigue 42156364 R53.83 [place] academic disorder 6378991 F81.9 Health Concerns Section Related Observation LastModified by Organization Detai ls LastModified Time None Recorded Concern Status LastModified by Organization Details LastModified Time None Recorded Advance Directives Directive None Recorded Payers Insurance Date Sequence Insurance Name Policy Number Policy Sharp Covered Member ID Sharp Member ID Guarantor Name 03/22/2021 1 [facility] (PPO) [id number] Dmitri Tejeda [id number] Deepti Sy 12/22/2020 1 [facility] - HEALTH NET PLAN (MEDICAID HMO) Dmitri Dugan [id number] Deepti Sy 04/03/2014 1 [facility] [id number] Wilfredo [id number] Deepti Sy 12/22/2020 1 [place] [facility] Dmitri Dugan [id number] Deepti Sy 12/22/2020 1 [facility] (POS) [address]fredo [address] [facility] [id number] Deepti Sy 04/03/2014 1 [facility] - DEFINITY HRA - CHOICE PLUS [id number] Malin [id number] Deepti Sy 04/03/2014 1 [facility] [id number] Ryanien [id number] Deepti Sy 09/20/2022 1 [place] [facility] Dmitri Infante [id number] Deepti Sy Notes Date Note Type Note Provider Name and Address Organization Details Recorded Time 05/25/2019 text/html RS Sick Visit Narrative HistoryReported by PatientSeen on 05/09/19 for cough and sore throat. Continues with cough and not improving. Now has congestion, some difficulty breathing with stairs, and persistant cough x >1 wk. Afeb. No V/D. Tried taking Sudafed, Vicks, Afrin nasal spray, tussin cough medicine and mucinex.Cough did get a little better in the meantime, and then it started to get worse about 1.5 weeks ago. New congestion.ROS as noted in the HPI MUNIR [facility] 05/25/2019 17:20:58 03/11/2020 text/html Pt and parent are afebrile. No ill symptoms in >10 days. No known Covid 19 exposure. No travel out of [place] in > 2 weeks. MUNIR [facility] 03/11/2020 08:58:03 03/22/2021 text/html No ill symptoms in >10 days. No known Covid 19 exposure. No travel out of [place] or [place] in > 2 weeks. Doing some summer classes (Nutrition) to get acclimated to new school, and working 1 day a weekend. Working with [facility] and disability services. Doing great in school with accomodations. Takes a little longer to answer questions or Mom needs to ask a question a different way. [facility], participating in a [employer] program. Mom concerns that she is not very future goal-oriented. Is doing the veterinary parasitologist program because she likes animals and others suggested it to her, but she doesn't really know what comes after school. Mom not sure if she's ever had cognitive testing for her and is now interested in formal evaluation. Always smiling per mom, even in inappropriate situations, like if mom is angry. Thinks maybe it is a nervous smile, but mom incredibly nervous that it will get her in trouble if she is ever pulled over by a motorcycle police officer, gets in trouble at school, etc. Used to bite tongue, now resolved. Has never seen a therapist and is not interested in one today. 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 Showed up around 5th grade and got bigger, but stable in size for the last 2 years. Has not seen dermatology, but mom sure that it is stable and unchanged in recent years. WALTER SHEPPARD MD [address], [place], , [facility] 03/22/2021 17:12:11 09/11/2021 text/html RS Sick Visit Narrative HistoryReported by PatientPt here for congestion x 5 days, nose is runny, congested in nose and chest, slight cough, SOB at times, no asthma, no vape/smoke, GONZALES's on and off, no temp taken, chills/hot flashes, no v/d. No ST. Has not had Covid covid exposure at work. is vaccinated.ROS as noted in the HPI Esther Doyle DO [address], [place], , [facility] 09/11/2021 15:32:21 OBGyn Episode No OBEpisode recorded.
== END 2025-06-29 11:42 | disposition home or self-care (01) ==
LOC: HO.HSM 11:04
PROVIDERS: PCP Internal Medicine; Visit Provider Psychiatry & Neurology Neurology
DX: G43.009 Migraine without aura, not intractable, without status migrainosus (principal); F84.0 Autistic disorder; F81.9 Developmental disorder of scholastic skills, unspecified
CPT/HCPCS: 99215; 99417

== ENCOUNTER → 2025-06-29 11:04 | Outpatient (BNVA) | payer OTHER, SELFPAY | PROVIDERS: PCP Internal Medicine; Visit Provider Psychiatry & Neurology Neurology | DX: F84.0 Autistic disorder (principal); F81.9 Developmental disorder of scholastic skills, unspecified | CPT/HCPCS: 99212 ==